=== PATIENT | female | born 1930 | race Caucasian/White ===

== ENCOUNTER → 2017-01-21 | Outpatient (CLI) | payer OTHER ==
[~2017-01-21] MED LIST: ALTACE10 M1 PO; ALTACE5 M1 PO; ALTACE5 MG PO; AMBIEN 10 MG TA10 MG PO; ANTACID650 MG PO; ASPIRIN325 PO; DOXYCYCLINE 10100 MG PO; FERROUS PO; FISH OIL 1,0001 EAC5 PO; FISHOIL; FOSAMAX 70 MG T70 M1 PO; FOSAMAX 70 MG T70 MG PO; HYDROCODONE-AP1 EAC6 PO; IRON325 PO; LEVOTHYROXIN0.025 MG PO; LIDODERM 5%1 PATC1 TRANSDERM; MOBIC15 MG PO; NIACIN500 MG PO; NIASPAN 500 MG500 M1 PO; NORCO 5-325 TA1 EACH PO; PROLIA60 MG/1 ML SQ; PROPRANOLOL 1010 M1 PO; VITAMIN D-32000 UNIT PO; VITAMIN E400 UNIT PO; ZOCOR40 MG PO
== END ==
LOC: MRI 09:28
DX: G31.9 Degenerative disease of nervous system, unspecified (principal); G45.4 Transient global amnesia

== ENCOUNTER 2019-05-01 21:32 | Emergency (ER) | payer OTHER ==
[~2019-05-01] VITALS: Ht 160 cm; Wt 72.6 kg
[2019-05-01 21:34] VITALS: BP 208/70
[2019-05-01] MEDS ORDERED: IBUPROFEN 600600 M1 PO (21:52)
[2019-05-01] MEDS ORDERED: AUGMENTIN 875-1 EACH PO (21:52)
== END 2019-05-01 22:05 | disposition home or self-care (01) ==
LOC: ER 21:32
DX: S81.832A Puncture wound without foreign body, left lower leg, initial encounter (principal); Z88.1 Allergy status to other antibiotic agents; Z79.899 Other long term (current) drug therapy; Z79.82 Long term (current) use of aspirin; Z95.5 Presence of coronary angioplasty implant and graft; Z90.49 Acquired absence of other specified parts of digestive tract; W55.03XA Scratched by cat, initial encounter; Y93.89 Activity, other specified; Y92.89 Other specified places as the place of occurrence of the external cause; Y99.9 Unspecified external cause status

== ENCOUNTER 2019-07-11 18:59 | Emergency (ER) | payer OTHER ==
[~2019-07-11] VITALS: Ht 162.6 cm; Wt 77.1 kg
--- NOTE | ~2019-07-11 | EKG ---
[facility] [place] [address] ELECTROCARDIOGRAM REPORT Name: LINDAGuillermina Room #: [facility]P [facility] [id number] Admission: 07/11/19 Attend Phys: Discharge: 07/11/19 Date of : 34 Report #: [id number] THIS REPORT FOR: cc: Kimani Elizondo MD, Eric K. 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
[~2019-07-11 18:59] MED LIST changes: +AUGMENTIN 875-1 EACH PO; +IBUPROFEN 600600 M1 PO; -LEVOTHYROXIN0.025 MG PO; +SYNTHROID50 MCG PO
[2019-07-11 19:26] LABS: HEMATOCRIT 38.7 % (37.0-47.0); HEMOGLOBIN 12.4 gm/dL (12.0-15.0); MCH 30.4 pg (26.0-34.0); MCHC 32.2 g/dL (28.0-37.0); MCV 94.6 fL (80.0-100.0); PLATELET COUNT 273 thou/uL (150-400); RBC 4.09 mil/uL (4.20-5.00); RDW 14.5 % (10.5-14.5); WBC 7.3 thou/uL (4.0-11.0)
[2019-07-11 19:33] LABS: ANION GAP 12 mmol/L (7-16); BUN 48 mg/dL (7-18); CALCIUM 8.8 mg/dL (8.5-10.1); CHLORIDE 103 mmol/L (98-107); CO2 26 mmol/L (21-32); CREATININE 2.3 mg/dL (0.6-1.0); GLUCOSE 111 mg/dL (74-106); POTASSIUM 4.1 mmol/L (3.5-5.1); SODIUM 141 mmol/L (136-145)
[2019-07-11 19:42] LABS: TROPONIN-I <0.06 ng/mL (<0.06)
[2019-07-11 20:01] LABS: ANISOCYTOSIS 1+
[2019-07-11 23:23] VITALS: BP 176/79
== END 2019-07-11 23:40 | disposition home or self-care (01) ==
LOC: ER 18:59
PROVIDERS: Emergency Medicine
DX: S00.01XA Abrasion of scalp, initial encounter (principal); Z90.49 Acquired absence of other specified parts of digestive tract; Z95.5 Presence of coronary angioplasty implant and graft; Z88.1 Allergy status to other antibiotic agents; W18.39XA Other fall on same level, initial encounter; Y93.89 Activity, other specified; Y92.89 Other specified places as the place of occurrence of the external cause; Y99.8 Other external cause status

== ENCOUNTER 2019-07-13 20:36 | Inpatient (IN) | payer OTHER ==
[~2019-07-13] VITALS: Ht 162.6 cm; Wt 73.9 kg
[2019-07-13 21:16] VITALS: BP 237/90
[2019-07-13 21:47] LABS: ABSOLUTE NEUTROPHILS 7.4 thou/uL (1.4-8.2); BASOPHILS 0.4 % (0.0-2.0); EOSINOPHILS 2.4 % (0.0-3.0); HEMATOCRIT 39.8 % (37.0-47.0); HEMOGLOBIN 12.7 gm/dL (12.0-15.0); LYMPHOCYTES 11.4 % (24.0-44.0); MCH 30.5 pg (26.0-34.0); MCV 95.2 fL (80.0-100.0); PLATELET COUNT 266 thou/uL (150-400); POLYS 76.8 % (36.0-66.0); RBC 4.18 mil/uL (4.20-5.00); RDW 14.6 % (10.5-14.5); WBC 9.7 thou/uL (4.0-11.0)
[2019-07-13 21:56] LABS: CALCIUM 8.9 mg/dL (8.5-10.1); CREATININE 2.5 mg/dL (0.6-1.0); POTASSIUM 4.7 mmol/L (3.5-5.1)
[2019-07-13 22:04] LABS: TROPONIN-I 0.55 ng/mL (<0.06)
[2019-07-14] VITALS (8 sets, daily range): BP systolic 117–212; BP diastolic 48–90
[2019-07-14] MEDS ORDERED: ASPIR 8181 M1 PO (02:53)
[2019-07-14 05:45] LABS: CHOLESTEROL 202 mg/dL (<200); HDL CHOLESTEROL 59 mg/dL (>40); LDL CHOLESTEROL 125 mg/dL (<100); TC:HDL 3.4 Ratio (Not establshd); TRIGLYCERIDE 92 mg/dL (<150); TROPONIN-I 0.43 ng/mL (<0.06); VLDL 18 mg/dL (<40)
[2019-07-14 06:10] LABS: SERUM ASSESSMENT Clear
[2019-07-14 06:12] LABS: FOLIC ACID 5.3 ng/mL (8.6-58.9); TSH 8.806 uIU/mL (0.358-3.740)
--- NOTE | 2019-07-14 06:39 | NUR ---
Arrived from ER around 0210. Very UNALAKLEET , no hearing aids. Denies any chest discomfort. Troponin and BP trending down. IV fluids started. Up with assist to bathroom. Bed alarm on for safety. Urine sample sent to lab per order. Will continue to monitor.
[2019-07-14 07:21] LABS: URINE BILIRUBIN NEGATIVE (Negative); URINE BLOOD TRACE (Negative); URINE CLARITY CLEAR; URINE COLOR YELLOW; URINE GLUCOSE-RANDOM* NEGATIVE (Negative); URINE KETONES NEGATIVE (Negative); URINE LEUKOCYTES-REFLEX NEGATIVE (Negative); URINE NITRITE-REFLEX NEGATIVE (Negative); URINE PROTEIN (DIPSTICK) 1+ (Negative); URINE UROBILINOGEN 0.2 E.U./dl (0.2-1.0)
[2019-07-14 07:33] LABS: CASTS None Seen /LPF (None Seen); SQUAMOUS 4-10 Moderate /LPF (0-3)
[2019-07-14 07:34] LABS: BACTERIA-REFLEX None Seen /HPF (None Seen); CRYSTALS None Seen /LPF (None Seen); URINE RBC 0-2 Rare /HPF (0-2); URINE WBC-REFLEX 0-5 Rare /HPF (0-5)
--- NOTE | 2019-07-14 14:58 | NUR ---
INITIAL ASSESSMENT: SW reviewed chart and spoke with nursing and attending physician. Pt was admitted from home after several falls. SW met with pt at bedside. Introduced role of SW. Pt is alert/orientated x 4. Pt reports she lives at home with her son. Prior to admission, pt was not using any DME. Pt does have a walker. No hx of HH services or post-acute placement. Pt's PCP is Dr. Kimani Elizondo. Pt is agreeable with post-acute placement or HH if recommended. Awaiting therapy evals at this time. SW is following to assist as needed with discharge planning.
--- NOTE | 2019-07-14 16:31 | NUR ---
PATIENT RESTING IN BED AT THIS TIME. SHE AMBULATES WITH SLOW BUT STEADY GAIT. CONTUSSION NOTED TO FOREHEAD. NO INCREASED CONFUSION NOTED. WILL CONT KETTERING HEALTH PLAN OF CARE.
--- NOTE | 2019-07-14 23:40 | NUR ---
PT RESTING IN CHAIR, ALARM INTACT. PT HAS HEART MURMUR. PT VERBALIZED UNDERSTANDING OF NPO P MN FOR AM STRESS TEST. PT CALLS FOR ASSISTANCE WITH AMBULATION, TUOLUMNE. R PUPIL OVAL AND SLUGGISH TO RESPOND. BS HYPOACTIVE. BLE EDEMA +2. FSBS NO COVERAGE NEEDED.
[2019-07-15 04:03] VITALS: BP 128/63
[2019-07-15 06:15] LABS: ABSOLUTE NEUTROPHILS 4.8 thou/uL (1.4-8.2); BASOPHILS 0.5 % (0.0-2.0); EOSINOPHILS 5.9 % (0.0-3.0); HEMATOCRIT 29.9 % (37.0-47.0); LYMPHOCYTES 11.5 % (24.0-44.0); MCH 30.9 pg (26.0-34.0); MCHC 32.5 g/dL (28.0-37.0); MCV 95.1 fL (80.0-100.0); MONOCYTES 11.2 % (1.0-8.0); PLATELET COUNT 197 thou/uL (150-400); POLYS 70.9 % (36.0-66.0); RBC 3.14 mil/uL (4.20-5.00); RDW 14.2 % (10.5-14.5); WBC 6.8 thou/uL (4.0-11.0)
[2019-07-15 06:32] LABS: HEMOGLOBIN 9.7 gm/dL (12.0-15.0)
[2019-07-15 06:40] LABS: CALCIUM 8.6 mg/dL (8.5-10.1); CREATININE 2.4 mg/dL (0.6-1.0); MAGNESIUM 2.1 mg/dL (1.8-2.4); POTASSIUM 4.6 mmol/L (3.5-5.1); TROPONIN-I 0.23 ng/mL (<0.06)
--- NOTE | 2019-07-15 09:29 | 2DMMODE ---
[facility] [place] [address] 2 D/M-MODE ECHOCARDIOGRAM Name: Guillermina MCKEON Room #: 362-P ADM IN M.R.#: [id number] Admission: 07/14/19 Attend Phys: Sushil Ryan MD Discharge: Date of : 32 Report #: [id number] THIS REPORT FOR: cc: Kimani Elizondo MD, Eric K. MD Park, Jin S. MD ~ APPROVED REPORT Study performed: 07/15/2019 08:23:30 EXAM: Comprehensive 2D, Doppler, and color-flow Echocardiogram Patient Location: Echo lab Room #: 362 Status: routine BSA: 1.80 HR: 66 bpm BP: 128/63 mmHg Rhythm: NSR Other Information Study Quality: Adequate Indications Aortic Valve Disease CAD Hypertension/HDD 2D Dimensions RVDd: 31.65 mm IVSd: 14.68 (7-11mm) LVOT Diam: 19.50 (18-24mm) LVDd: 44.90 mm PWd: 15.10 (7-11mm) Ascending Ao: 26.91 (22-36mm) LVDs: 32.74 (25-40mm) Aortic Root: 29.31 mm IVC: 24.00 mm Volumes Left Atrial Volume (Systole) Single Plane 4CH: 72.07 mL Single Plane 2CH: 52.00 mL LA ESV Index: 36.00 mL/m2 Aortic Valve AoV Peak Shabbir.: 3.06 m/s AO Peak Gr.: 37.39 mmHg LVOT Max P.60 mmHg AO Mean Gr.: 22.67 mmHg LVOT Mean P.36 mmHg [facility] [address] [place] [address] 2 D/M-MODE ECHOCARDIOGRAM Name: Guillermina MCKEON Room #: 362-P [facility] IN [facility].#: [id number] Admission: 07/14/19 Attend Phys: Sushil Ryan MD Discharge: Date of : 32 Report #: [id number] AO V2 Mean: 2.19 m/s LVOT Max V: 0.95 m/s AO V2 VTI: 76.92 cm LVOT Mean V: 0.72 m/s MAYRA (VTI): 1.05 cm2 LVOT V1 VTI: 26.95 cm MAYRA Vmax: 0.93 cm2 AI Vmax: 3.59 m/s SV (LVOT): 80.43 mL AI [place]: 1.76 m/s2 AI PHT: 589.51 ms Mitral Valve E/A Ratio: 0.8 MV Decel. Time: 189.43 ms MV E Max Shabbir.: 0.90 m/s MV A Shabbir.: 1.08 m/s MV PHT: 54.93 ms IVRT: 110.73 ms Pulmonary Valve PV Peak Shabbir.: 0.90 m/s PV Peak Gr.: 3.27 mmHg Pulmonary Vein P Vein S: 0.59 m/s P Vein A: 0.27 m/s P Vein D: 0.30 m/s P Vein A Dur.: 92.3 msec P Vein S/D Ratio: 1.97 Tricuspid Valve TR Peak Shabbir.: 2.54 m/s TR Peak Gr.: 25.88 mmHg PA Pressure: 36.00 mmHg Left Ventricle The left ventricle is normal size. There is normal LV segmental wall motion. Mild concentric left ventricular hypertrophy. The left ventricular systolic function is normal. The left ventricular ejection fraction is within the normal range. LVEF is 55-60%. Grade I - abnormal relaxation pattern. Right Ventricle The right ventricle is normal size. The right ventricular systolic function is normal. Atria Left atrium is dilated. Right atrium is at the upper limits of normal. Aortic Valve The aortic valve is normal in structure. [place] [address] 2 D/M-MODE ECHOCARDIOGRAM Name: Guillermina MCKEON Room #: 362-P [facility] IN [facility]#: [id number] Admission: 07/14/19 Attend Phys: Suhsil Ryan MD Discharge: Date of : 32 Report #: [id number] Mild aortic regurgitation. Mild aortic stenosis. Mitral Valve The mitral valve is normal in structure. Mild mitral regurgitation. No evidence of mitral valve stenosis. Tricuspid Valve The tricuspid valve is normal in structure. There is trace tricuspid regurgitation. Estimated PAP 36 mmHg. There is mild pulmonary hypertension. Pulmonic Valve The pulmonary valve is normal in structure. Trace to mild pulmonic regurgitation. Great Vessels The aortic root is normal in size. IVC is dilated and collapses >50% with inspiration. Pericardium There is no pericardial effusion. <Conclusion> The left ventricle is normal size. Mild concentric left ventricular hypertrophy. The left ventricular systolic function is normal. Grade I - abnormal relaxation pattern. The right ventricle is normal size. Left atrium is dilated. Aortic valve is calcified. Mild aortic regurgitation. Mild aortic stenosis. Mild mitral regurgitation. There is trace tricuspid regurgitation. Estimated PAP 36 mmHg. <ELECTRONICALLY SIGNED> By: Jose Luis Vásquez MD 07/15/19927 7 7 Jose Luis Vásquez MD /INF
--- NOTE | 2019-07-15 12:18 | NUR ---
SW reviewed chart and spoke with nursing and attending physician. Pt is currently off the unit having stress test. Pt is progressing towards goals for discharge. SW is following to assist as needed with discharge planning.
--- NOTE | 2019-07-15 12:34 | EKG ---
[facility] [place] [address] ELECTROCARDIOGRAM REPORT Name: Guillermina MCKEON Room #: 362-P ADM IN M.R.#: [id number] Admission: 07/14/19 Attend Phys: Sushil Ryan MD Discharge: Date of : 32 Report #: [id number] THIS REPORT FOR: cc: Kimani Elizondo MD, Eric K. 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1930 Requested By: Negro Madrid Order Number: [id number] MD: Jayy Kinsey Measurements Intervals [place] Rate: 103 P: 70 [place]: 185 QRS: 34 QRSD: 88 T: 0 QT: 324 QTc: 424 Interpretive Statements Sinus tachycardia Multiple ventricular premature complexes Compared to ECG 07/11/2019 19:21:03 Ventricular premature complex(es) now present Electronically Signed On 07-14-2019 9:16:38 CERTIFIED ENDOSCOPY TECHNICIAN by Jayy Kinsey [email or web address] <ELECTRONICALLY SIGNED> By: Jayy Kinsey MD, [facility] 07/14/19 0916 001 001 Jayy Kinsey MD, [facility] /EPI
[2019-07-15 15:13] VITALS: BP 124/47
[2019-07-15 20:24] VITALS: BP 146/60
[2019-07-16 04:00] VITALS: BP 140/57
--- NOTE | 2019-07-16 06:43 | NUR ---
PT UP WITH STANDBY ASSIST TO BATHROOM. PT HAS BEEN NPO SINCE 2400 FOR SCHEDULED CATH TODAY. HOURLY ROUNDING.
[2019-07-16 07:09] LABS: CALCIUM 8.3 mg/dL (8.5-10.1); CREATININE 2.5 mg/dL (0.6-1.0); POTASSIUM 4.2 mmol/L (3.5-5.1)
[2019-07-16 07:48] VITALS: BP 148/53
[2019-07-16 11:12] VITALS: BP 145/62
[2019-07-16 15:42] VITALS: BP 143/60
--- NOTE | 2019-07-16 17:04 | NUR ---
SW reviewed chart and spoke with nursing and attending physician. Pt is progressing towards goals for discharge. SW met with pt at bedside to discuss discharge plan. Pt would prefer to return home with services when medically stable. Cardiology is recommending possible cardiac cath. SW is following to assist as needed with discharge planning.
[2019-07-16 20:04] VITALS: BP 129/40
[2019-07-17] VITALS (7 sets, daily range): BP systolic 120–151; BP diastolic 38–70
--- NOTE | 2019-07-17 07:52 | NUR ---
PATIENT IS PROGRESSING IN HER CARE PLAN. VITAL SIGNS STABLE WITH PATIENT HAVING NO COMPLAINTS OF PAIN OR NAUSEA. PATIENT IS ORIENTED BUT CAN BE FORGETFUL AT TIMES. BREATHING STABLE EVIDENCED BY ASSESSMENT AND SPOT OXYGENATION CHECKS. UP MULTIPLE TIMES TO BATHROOM WITH ASSISTANCE INCIDENT FREE. CONTINUE PLAN OF CARE.
[2019-07-17] MEDS ORDERED: CARVEDILOL12.5 MG PO (08:56)
[2019-07-17] MEDS ORDERED: NORVASC5 MG PO (08:56)
[2019-07-17] MEDS ORDERED: ASPIRIN325 PO (08:56)
[2019-07-17] MEDS ORDERED: LIPITOR40 MG PO (08:56)
--- NOTE | 2019-07-17 16:51 | NUR ---
KALEE reviewed chart and spoke with nursing and attending physician. Pt is progressing towards goals for discharge. Pt may be ready for discharge over the weekend. Recommendation made for pt to have HH services. Pt voice no preference of HH agency. KALEE sent referral to [facility]. SW notified HH liaison of new referral. Contact info for HH placed in pt's discharge summary. Finalized discharge orders/summary will need to be faxed when available. SW is available to assist should needs arise. [facility] --
--- NOTE | 2019-07-18 02:29 | NUR ---
ASSESSMENT: PT REMAIN ALERT AND ORIENT TIMES THREE WHEN FULLY AWAKE JUST A LITTLE FORGETFUL. AFTER WAKING UP PT IS ONLY ALERT TIMES ONE. PT WAKES UP CONFUSED AND THINK THAT SHE IS AT HOME AND THAT HER DAUGHTER IS SLEEPING IN A BED NEXT TO HER. CONTINUALLY TALK ABOUT GETTING UP AND GETTING DRESSED TO COOK BREAKFAST. PT WAS GIVEN A SNACK, ATTEMPTS TO REORIENT TO TIME AND PLACE. SB PER THE MONITOR. VSS, AFEBRILE. SLOW PROGRESS TOWARDS DC GOALS, WILL CONTUNE TO MONITOR.
[2019-07-18 07:04] LABS: ALBUMIN 2.9 g/dL (3.4-5.0); CALCIUM 7.8 mg/dL (8.5-10.1); CREATININE 2.7 mg/dL (0.6-1.0); PHOSPHORUS 3.3 mg/dL (2.5-4.9); POTASSIUM 4.2 mmol/L (3.5-5.1)
[2019-07-18 08:07] VITALS: BP 151/54
[2019-07-18 11:14] VITALS: BP 135/46
[2019-07-18] MEDS ORDERED: FOLIC ACID1 MG PO (13:50)
[2019-07-18] MEDS ORDERED: B-12500 MCG PO (13:50)
[2019-07-18] MEDS ORDERED: SODIUM BICARBO650 M3 PO (13:50)
[2019-07-18] MEDS ORDERED: ACETAMINOPHEN325 M1 PO (13:50)
[2019-07-18 15:47] VITALS: BP 135/58
--- NOTE | 2019-07-18 17:55 | NUR ---
PT is A&OX2 ( person and place), pt's vs are stable, pt denies chest pain , RN received order DC to home with home health, RN has called [facility] and faxed pt's informatiom to , RN has giving DC teaching to pt and pt's daughter, pt's daughter pick up and delivery driver to home about 1630pm.
[2019-07-20 12:15] VITALS: BP 151/50
--- NOTE | 2019-07-20 16:09 | NUR ---
CALL RECEIVED FROM [facility]. MARIKA STATES THEY RECEIVED PATIENT REFERRAL AND DISCHARGE/HOME HEALTH ORDERS. PER ROBBIE [facility] IS UNABLE TO SERVICE PATIENT. [facility] DOES NOT CONTRACT WITH PATIENTS PROVIDER. PATIENT REFERRAL [facility]. CALL RECEIVED FROM [facility]. UNABLE TO SERVICE PATIENT. [facility] DOES NOT CONTRACT WITH PATIENTS PROVIDER. PATIENT REFERRAL FAXED TO [facility]. CALL PLACED TO [facility]. SPOKE WITH PREET VICTORIA. PER JAE VICTORIA DOES NOT CONTRACT WITH PATIENTS PROVIDER. CALL PLACED TO [facility]. SPOKE WITH [facility]. REFERRAL FAXED TO DEE, FOR REVIEW. DEE TO RUN PATIENTS INSURANCE PROVIDER TO SEE IF [facility] CONTRACTS WITH THEM. DEE TO NOTIFY CM. AWAITING RESPONSE.
== END 2019-07-18 17:56 | disposition home health service (06) | DRG 281 ==
LOC: ER 20:36 → EROBS 07-14 00:19 → 3W 07-14 00:19
PROVIDERS: Emergency Medicine; Hospitalist; Nurse Practitioner; ADMIT Internal Medicine
DX: I21.4 Non-ST elevation (NSTEMI) myocardial infarction (principal); N17.9 Acute kidney failure, unspecified; I16.0 Hypertensive urgency; E86.0 Dehydration; E78.5 Hyperlipidemia, unspecified; I73.9 Peripheral vascular disease, unspecified; E03.9 Hypothyroidism, unspecified; I25.10 Atherosclerotic heart disease of native coronary artery without angina pectoris; I12.9 Hypertensive chronic kidney disease with stage 1 through stage 4 chronic kidney disease, or unspecified chronic kidney disease; N18.9 Chronic kidney disease, unspecified; G47.30 Sleep apnea, unspecified; G25.2 Other specified forms of tremor; E53.8 Deficiency of other specified B group vitamins; M81.0 Age-related osteoporosis without current pathological fracture; I67.9 Cerebrovascular disease, unspecified; S00.03XA Contusion of scalp, initial encounter; W10.8XXA Fall (on) (from) other stairs and steps, initial encounter; Y93.01 Activity, walking, marching and hiking; Y92.89 Other specified places as the place of occurrence of the external cause; Y99.8 Other external cause status; Z95.5 Presence of coronary angioplasty implant and graft; Z88.8 Allergy status to other drugs, medicaments and biological substances; Z79.899 Other long term (current) drug therapy; Z79.82 Long term (current) use of aspirin; Z91.81 History of falling; Z90.89 Acquired absence of other organs; Z87.891 Personal history of nicotine dependence
CPT/HCPCS: 10879

== ENCOUNTER → 2019-08-04 | Outpatient (CLI) | payer OTHER ==
[~2019-08-04] MED LIST changes: +ACETAMINOPHEN325 M1 PO; +ASPIR 8181 M1 PO; +B-12500 MCG PO; +CARVEDILOL12.5 MG PO; +FOLIC ACID1 MG PO; +LIPITOR40 MG PO; +NORVASC5 MG PO; +SODIUM BICARBO650 M3 PO
== END ==
LOC: SJCVC 14:18
DX: I25.10 Atherosclerotic heart disease of native coronary artery without angina pectoris (principal); I10 Essential (primary) hypertension; E78.00 Pure hypercholesterolemia, unspecified; R60.9 Edema, unspecified; E78.5 Hyperlipidemia, unspecified; W19.XXXA Unspecified fall, initial encounter; Z79.82 Long term (current) use of aspirin; Z79.899 Other long term (current) drug therapy

== ENCOUNTER 2019-09-10 08:38 | Inpatient (IN) | payer OTHER ==
[~2019-09-10] VITALS: Ht 160 cm; Wt 66.8 kg
[2019-09-10] VITALS (10 sets, daily range): BP systolic 77–194; BP diastolic 43–66
--- NOTE | ~2019-09-10 | HC ---
[facility] [place] [address] CONSULTATION Name: Guillermina MCKEON Room #: 215-P ADM IN M.R.#: [id number] Admission: 09/10/19 Attend Phys: Lenny Hyde MD Discharge: Date of : 32 Report #: [id number] THIS REPORT FOR: cc: Kimani Elizondo MD,Chadd Baldwin MD, MD ~ CC: Kimani Hyde DATE OF SERVICE: 09/14/2019 HISTORY OF PRESENT ILLNESS: The patient is an 89-year-old white female with history of hypertension, hyperlipidemia, peripheral arterial disease, coronary artery disease, status post balloon and stenting, who was admitted with recurrent falls. She was noted to have multifactorial bradycardia, hypertensive urgency and orthostasis. She has been treated for acute on chronic renal insufficiency, possible acute tubular necrosis. She is doing better with fluid hydration. We are seeing her in rehabilitation medicine consultation. PAST MEDICAL HISTORY: Well delineated above. She also has a history of sleep apnea, AL in 1992, osteoporosis, tremors. MEDICATIONS: Please see the full medication listing. ALLERGIES: NEOMYCIN. SOCIAL HISTORY: Lives in a house with her son. She did not utilize gait aids. He was in a prior accident and is apparently disabled and does not work outside the home. He could give her some assistance if need be. REVIEW OF SYSTEMS: She did not offer any complaints of chest pain, shortness of breath or abdominal discomfort. PHYSICAL EXAMINATION: GENERAL: An 89-year-old thin white female in no obvious distress. VITAL SIGNS: Last recorded temperature 97, pulse 57, respirations 18, blood pressure 142/62. The patient is alert. HEENT: Appeared to be benign. NEUROLOGIC: Cranial nerves are grossly intact. Facies are symmetric. EXTREMITIES: Functional range of motion of both upper extremities with strength grade 4-/5. DTRs are trace to 1. Lower extremities functional range of motion with strength grade 4-/5. DTRs are trace to 1. Min assist with sit to stand. She did have a significant orthostatic drop with systolic increasing from 155-115. Lower extremity dressing is mod assist. ASSESSMENT: An 89-year-old white female with the following problem list: [facility] [address] [place] [address] CONSULTATION Name: Guillermina MCKEON Room #: 215-P [facility] IN [facility]#: [id number] Admission: 09/10/19 Attend Phys: Lenny Hyde MD Discharge: Date of : 32 Report #: [id number] 1. Dizziness with recurrent falls. 2. Multifactorial bradycardia. 3. Hypertensive urgency. 4. Acute on chronic renal insufficiency. 5. Orthostatic hypotension. 6. Hypertension. 7. Hyperlipidemia. 8. Premorbid resting tremor. 9. Peripheral arterial disease. 10. Prior history of some memory decrease. PLAN: Insurance will need to be checked regarding rehab therapy issues. We will be glad to follow along with you regarding her rehab therapy needs. By: [id number] [id number] Chadd Holcomb MD /SHIVANI
[2019-09-10 09:07] LABS: HEMATOCRIT 35.4 % (37.0-47.0); HEMOGLOBIN 11.8 gm/dL (12.0-15.0); MCH 30.7 pg (26.0-34.0); MCHC 33.3 g/dL (28.0-37.0); MCV 92.1 fL (80.0-100.0); PLATELET COUNT 234 thou/uL (150-400); RBC 3.84 mil/uL (4.20-5.00); RDW 13.9 % (10.5-14.5); WBC 6.9 thou/uL (4.0-11.0)
[2019-09-10 09:10] LABS: CALCIUM 8.7 mg/dL (8.5-10.1)
[2019-09-10 09:14] LABS: POTASSIUM 4.3 mmol/L (3.5-5.1)
[2019-09-10 09:16] LABS: ALBUMIN 3.4 g/dL (3.4-5.0); TOTAL BILIRUBIN 1.3 mg/dL (<0.1-1.0); TOTAL PROTEIN 7.4 g/dL (6.4-8.2)
[2019-09-10 09:42] LABS: URINE BILIRUBIN NEGATIVE (Negative); URINE BLOOD NEGATIVE (Negative); URINE CLARITY CLEAR; URINE COLOR YELLOW; URINE GLUCOSE-RANDOM* NEGATIVE (Negative); URINE KETONES NEGATIVE (Negative); URINE LEUKOCYTES-REFLEX NEGATIVE (Negative); URINE NITRITE-REFLEX NEGATIVE (Negative); URINE PROTEIN (DIPSTICK) NEGATIVE (Negative); URINE SPECIFIC GRAVITY 1.015 (1.005-1.035); URINE UROBILINOGEN 0.2 E.U./dl (0.2-1.0)
[2019-09-10 09:44] LABS: LIPASE 219 U/L (73-393); TROPONIN-I <0.06 ng/mL (<0.06)
[2019-09-10] MEDS ORDERED: TORSEMIDE10 MG PO (11:38)
--- NOTE | 2019-09-10 13:29 | EKG ---
[facility] [place] [address] ELECTROCARDIOGRAM REPORT Name: Guillermina MCKEON Room #: 215-P ADM IN M.R.#: [id number] Admission: 09/10/19 Attend Phys: Lenny Hyde MD Discharge: Date of : 32 Report #: [id number] THIS REPORT FOR: cc: Kimani Elizondo MD, Eric K. 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1930 Requested By: Negro Madrid Order Number: [id number] MD: Jayy Kinsey Measurements Intervals [place] Rate: 51 P: 70 [place]: 203 QRS: 25 QRSD: 101 T: 16 QT: 471 QTc: 434 Interpretive Statements Sinus rhythm First-degree AV block Compared to ECG 07/14/2019 00:12:28 Sinus tachycardia no longer present Ventricular premature complex(es) no longer present Electronically Signed On 09-10-2019 13:27:40 CDT by Jayy Kinsey [email or web address] <ELECTRONICALLY SIGNED> By: Jayy Kinsey MD, [facility] 09/10/19 1327 [id number] Jayy Kinsey MD, [facility] /EPI
--- NOTE | 2019-09-10 18:25 | NUR ---
PT. ARRIVED AT FLOOR AROUND 1330; AOX4; NO C/O PAIN; ABLE TO TRANSFER FROM [facility] TO BED; PT ST. HAVING A "TEMPERATURE YESTERDAY" BECAUSE SHE FELT SO "HOT & I AM NEVER HOT EVEN IN SUMMER"; GATEMAN & PHYSICIAN NOTIFIED; NO NEW ORDERS; C/O DIZZINESS WHEN SITTIN UP AT THE BED SIDE; MEDICATION STARTED; SBP ABOVE 170; PRN IV MEDICATION GIVEN; PER PHYSICAL THERAPY PT. C/O DIZZINESS; ORTHOSTATIC BP NOTICED; CHECK CHARTING; GATEMAN NOTIFIED; ORDERS ON PLACED; CALLED CONSULT; ABLE TO COMPLETE SOME HOME MEDICATION WITH SON & PT.; NOT SURE ABOUT NEW MEDICATION STARTED PER SON ST.; MONITORING; EDUCATED ABOUT FALL PRECAUTIONS; ST. UNDERSTANDING; ASSESSMENT CHARGED; FOLLOWING POC; WILL PASS ON REPORT;
[2019-09-11] VITALS (7 sets, daily range): BP systolic 97–157; BP diastolic 34–49
--- NOTE | 2019-09-11 00:56 | NUR ---
Pt Alert and oriented x4. PAIMIUT. VSS. Afebrile. HRR. SB on monitor. Lungs dimished at bases. Unlabored on RA. Instructed pt to not get OOB without assistance. Bed down in low locked position. Bed alarm is on. Call light in reach. Pt up to bsc with assistance of 1 person. Voids clear yellow urine. No c/o dizziness so far tonight. No skin breakdown noted. Scds on. Will continue to monitor pt for changes.
--- NOTE | 2019-09-11 07:01 | NUR ---
Pt has had a quiet uneventful night. No c/o dizziness or SOB. Bed down call light in reach. Bed alarm is on. No s/s distress.
[2019-09-11 10:52] LABS: BASOPHILS 0.9 % (0.0-2.0); EOSINOPHILS 2.7 % (0.0-3.0); HEMOGLOBIN 10.2 gm/dL (12.0-15.0); LYMPHOCYTES 14.8 % (24.0-44.0); MCH 30.3 pg (26.0-34.0); MCV 92.1 fL (80.0-100.0); MONOCYTES 10.7 % (1.0-8.0); PLATELET COUNT 199 thou/uL (150-400); POLYS 70.9 % (36.0-66.0); RBC 3.37 mil/uL (4.20-5.00); RDW 14.2 % (10.5-14.5); WBC 5.7 thou/uL (4.0-11.0)
[2019-09-11 10:58] LABS: CREATININE 2.6 mg/dL (0.6-1.0); POTASSIUM 3.7 mmol/L (3.5-5.1)
--- NOTE | 2019-09-11 16:14 | NUR ---
Case opened to follow for dc planning. Pt gave permission to speak with her son regarding dc planning needs as they live together. Her dtr Saira is her dpoa but lives in [place]. Chain Person spoke with both son Kade and at his request dtr Saira. They report that the pt has been more sedentary and forgetful in recent months. She has not been eating and drinking well at home and her son helps manage her medications. They are open to HH and did not get any arranged when she went home in July. They are agreeable to using [facility] if they can accept. The pt has a walker at home and normally goes out to the store with her son. She is confined to her home otherwise. She is indep with most adl's with some setup. Son does the iadl's. They are concerned about her medication mgnt and weakness. Pt being hydrated and montiored for orthostatic bps. Therapy evals in progress. [facility] notified of referral [phone]. They would need to be contacted at [place] and orders faxed to [phone].
--- NOTE | 2019-09-11 17:08 | NUR ---
FAXED REFERRAL TO [facility] SPOKE WITH [facility] IN INTAKE THEY RECEIVED REFERRAL AND CAN ACCEPT AT DC. IF PT DISCHARGES OVER WEEKEND PLEASE FAX ORDERS TO [phone] AND CALL [phone] TO NOTIFY OF DC.
--- NOTE | 2019-09-11 18:17 | NUR ---
Received awake on bed. Due medications given as prescribed, able to swallow meds w/o difficulty. On room air. Vital signs stable, orthostatic BP monitoring done, with slight decline noted- Cardio TIMBER SUPERVISOR aware; Pt seen by Dr Vásquez- medications modified. A+Ox4, [place]. On heart monitoring, no complaints of chest pain, crushing sensation and heaviness. On heart healthy diet- encouraged to eat and drink; no nausea, no vomiting and no abdominal pain noted. Continent of B/B; able to walk to the toilet with gait belt and standby assist; output measured and recorded. With NS at 100cc/hr, infusing well at L FA. Ongoing PT/OT. With Knee high RYLAN hose in place. Pt's daughter Alejandra called- update given. To continue monitoring patient.
[2019-09-12] VITALS (7 sets, daily range): BP systolic 110–176; BP diastolic 48–73
--- NOTE | 2019-09-12 00:07 | NUR ---
PT DENIED PAIN/N/V SO FAR.PT UP WITH SBA/WALKER TO BR,PT FELT DIZZY WHEN SHE GOT UP BT RECOVERED IMMEDIATELY.PT CONT ON IVF ORDERED.PT ABLE TO MAKE HER NEEDS KNOWN.FALL PRECAUTIONS IN PLACE,CALL LIGHT WITHIN REACH.
[2019-09-12 04:38] LABS: CALCIUM 7.8 mg/dL (8.5-10.1); CREATININE 2.4 mg/dL (0.6-1.0); POTASSIUM 3.7 mmol/L (3.5-5.1)
--- NOTE | 2019-09-12 15:58 | NUR ---
ASSUMED CARE PT SHIFT CHANGE. ASSESSMENT CHARTED. MEDS GIVEN PER AUG. PT ALERT AND ORIENTED. VSS. DENIES PAIN. 02 SATS WNL ON RA. DENIES SOB. UP SBA TOLERATING WELL. PT WORKED WITH PHYS THERAPY THIS SHIFT TOLERATING WELL. DC ORTHOSTATIC BP PER PHYSICIAN ORDER. BP REMAINS WNL. DENIES DIZZINESS. APPETITE ADEQUATE. PT CURRENTLY RESTING UP IN CHAIR, DENYING OF NEEDS. WILL CONTINUE TO MONITOR AND FOLLOW POC.
[2019-09-13] VITALS (7 sets, daily range): BP systolic 104–151; BP diastolic 38–86
[2019-09-13 05:27] LABS: HEMATOCRIT 30.8 % (37.0-47.0); HEMOGLOBIN 10.4 gm/dL (12.0-15.0); MCHC 33.7 g/dL (28.0-37.0); MCV 91.9 fL (80.0-100.0); RBC 3.35 mil/uL (4.20-5.00); RDW 14.2 % (10.5-14.5); WBC 6.8 thou/uL (4.0-11.0)
[2019-09-13 05:28] LABS: CALCIUM 8.9 mg/dL (8.5-10.1); CREATININE 2.2 mg/dL (0.6-1.0); POTASSIUM 4.1 mmol/L (3.5-5.1)
--- NOTE | 2019-09-13 06:32 | NUR ---
ASSESSMENT DOCUMENTED.PT BEEN RESTING IN NO ACUTE DISTRESS.A/OX4.VSS.DENIES ANY EPISODES OF DIZZINESS.UP WITH ASSIT TO BR.RA W/O RESP DISTRESS.POC IS TO CONT TO MONITOR ADN DISCHARGE TO SNF WHEN STABLE.PT DENIES ANY NEEDS AT THIS TIME.
--- NOTE | 2019-09-13 17:15 | NUR ---
PT CARE ASSUMED APPROX 0700. ASSESSMENT CHARTED. DENIES PAIN AND SOA. VSS. UP WITH MIN 1 PERSON ASSIST. TOLERATING POC. DENIES QUESTIONS OR CONCERNS REGARDING POC. NO DISTRESS NOTED.
--- NOTE | 2019-09-14 01:39 | NUR ---
UP WITH ASSIST TO THE BATHROOM.VOIDED.ALERT AND ORIENTED.DENIES PAIN AND SOB.ROOM AIR.MONITOR SHOWS SR.POC CONTINUED.
[2019-09-14 04:14] VITALS: BP 161/64
[2019-09-14 08:00] VITALS: BP 116/54; BP 179/69; BP 179/76
[2019-09-14 11:04] LABS: CALCIUM 9.3 mg/dL (8.5-10.1); CREATININE 2.2 mg/dL (0.6-1.0); POTASSIUM 3.9 mmol/L (3.5-5.1)
[2019-09-14 12:00] VITALS: BP 142/62
--- NOTE | 2019-09-14 13:57 | NUR ---
Assumed pt care at 7am.Pt in bed resting without c/o.Assessment completed.vss. Pt up in chair for all meals.Good appetite.Dr Hyde here,wanted rehab evaluate pt.Received call from pt dtr.Updates given.Fall bundle in place for pt safety. Will continue to monitor.
--- NOTE | 2019-09-14 15:29 | NUR ---
called patient in room. patient evaled by [facility] and candidate for acute rehab. patient agreeable to plan. Attempted to call dtr but no answer. Patient reports she will update her.
--- NOTE | 2019-09-14 15:40 | NUR ---
PATIENT HAS BEEN ASSESSED PER DR. BARKLEY REGARDING APPROPRIATENESS FOR ACUTE INPATIENT REHAB ADMISSION. PT HAS FUNCTIONAL AND MEDICAL NEEDS THAT WOULD REQUIRE MORE THAN ONE THERAPY DISCIPLINE AT LEAST 3 HOURS PER DAY, AND DUE TO ACUTE MEDICAL PROBLEMS, SHE ALSO REQUIRES THE CLOSE MANAGEMENT OF MEDICAL NEEDS REQUIRING A REHAB MD TO SEE HER AT LEAST 3 TIMES PER WEEK. PT HAS BEEN ACCEPTED TO ACUTE REHAB PENDING MEDICAL CLEARANCE AND APPROVAL PER FAMILY AND PATIENT. THANK YOU FOR THIS REFERRAL. WILL REACH OUT TO [employer] REGARDING AUTHORIZATION REQUIREMENTS.
[2019-09-14 16:00] VITALS: BP 151/65
[2019-09-15 00:30] VITALS: BP 142/53
[2019-09-15 04:11] VITALS: BP 137/48
--- NOTE | 2019-09-15 05:18 | NUR ---
Assumed pt care at 2300. Pt is A/OX4 with forgetfulness, hard of hearing and doesn't wear hearing aids. VSS. Up with assist of 1, RW/GB. Denies pain on assessment. Continent of B&B. Denies dizziness this shift. Fall precautions in place, reminded to call for help. Call light/personal items within reach. Resting w/o distress noted, will continue to monitor pt.
[2019-09-15 06:10] LABS: CALCIUM 8.8 mg/dL (8.5-10.1); CREATININE 2.2 mg/dL (0.6-1.0); POTASSIUM 4.1 mmol/L (3.5-5.1)
[2019-09-15 07:42] VITALS: BP 172/62
[2019-09-15] MEDS ORDERED: NORVASC10 MG PO (13:21)
--- NOTE | 2019-09-15 15:46 | NUR ---
CM NOTIFIED THAT PT HAD BEEN ACCEPT MEDICALLY TO [facility] AND THAT THEY COULD ACCEPT PT TODAY. CM SPOKE WITH PT AND WITH PT'S DTR THEY WERE AGREEABLE. [facility] CONTACTED INSURANCE FOR AUTH AND IT WAS DETERMINED THAT [facility] IS OUT OF NETWORK WITH HER P[ARTICULAR PLAN. [facility] IS IN NETWORK. CM NOTIFIED PT AND DTR AND THEY ASKED THAT REFERRAL BE SENT TO THEM FOR REVIEW. REFERRAL SENT. CM NOTIFIED PHYSICAIN. CM TO FOLLOW INDICATED WITH DC PLANNING.
--- NOTE | 2019-09-15 16:15 | NUR ---
FAXED REFERRAL TO [facility]. SPOKE WITH KIERAN IN ADM RECEIVED CONFIRMATION AND SPOKE WITH KIERAN IN ADM SHE WILL REVIEW. DP TO FOLLOW
[2019-09-15 16:19] VITALS: BP 145/61
--- NOTE | 2019-09-15 16:36 | NUR ---
PATIENT ACCEPTED TO ACUTE REHAB ON 09/14/19 WITH POSSIBLE ADMISSION THIS DATE TO . INSURANCE CALLED FOR AUTHORIZATION AND [employer]ORTER [employer]UN[employer] ARTICLES FOUND THAT IS NOT IN NETWORK FOR PATIENT'S [facility] PLAN. PATIENT HAS VERY LIMIT PLAN WITH ONE OPTION FOR REHAB AND THAT IS [facility]. IF [facility] WILL NOT ACCEPT THE PATIENT, CAN REQUEST SPECIAL EXCEPTION FOR ADMISSION. CURTAIN MENDER INFORMED. CONTACT AT [facility] IS DIRK AND CONTACT NUMBER IS [id number]
--- NOTE | 2019-09-15 18:52 | NUR ---
PT IS AOX3, LAC VIEUX, VSS, NO C/O PAIN AT THIS TIME. PT IS UP TO RECLINER WITH GAIT BELT AND WALKER. IV IS SL IN LEFT FA. PT TOLERATING DIET WELL. FALL PRECAUTIONS IN REACH. WILL CONTINUE TO MONITOR.
[2019-09-15 19:06] VITALS: BP 160/54
[2019-09-16] VITALS (10 sets, daily range): BP systolic 125–188; BP diastolic 34–60
--- NOTE | 2019-09-16 04:23 | NUR ---
Assumed pt care at 1900. A/OX4, with forgetfulness but able to make needs known. Denies pain on assessment. VSS. Up with AX1, RW/GB. Continent of B&B. Fall precautions in place and pt reminded to call for help as needed. Call light/personal items within reach, resting quietly w/o distress noted. Will continue to monitor pt.
[2019-09-16 04:39] LABS: CALCIUM 8.6 mg/dL (8.5-10.1); CREATININE 2.4 mg/dL (0.6-1.0); POTASSIUM 4.2 mmol/L (3.5-5.1)
--- NOTE | 2019-09-16 16:26 | NUR ---
[facility] INDICATED THAT PT IS TOO HIGH LEVEL AND THEY WON'T ACCEPT. CM ATTEMPTED NUMEROUS PC TO HER FTR/DPOA IN [place] BUT SHE LEFT HER PHONE AT HOME CM SPOKE WITH HER SPOUSE. CM TRIED PT'S SON WHO LIVES WITH HER PRESTON ON HIS CELL AND AT THE HOME ADDRESS WITH NO ANSWER. CM CALLED AND SPOKE WITH PT AND SHE INDICATRED SHE FEELS SAFE TO RETURN HOME WITH HOME HEALTH SERVICES THIS DAY. JEISON SENT CLINICAL UPDATED TO [facility] REFERRAL HAD BEEN SENT THERE PREOVIOUSLY. SHOULD STAFF BE ABLE TO REACH FAMILY AND CONFIRM [place]ENET OF DC HOME TODAY FAX HOME HEALTH ORDERS TO .
--- NOTE | 2019-09-16 18:45 | NUR ---
ASSUMED CARE OF PATIENT AT 0715, PATIENT ALERT AND ORIENTED X 4, FORGETFUL. PATIENT ABDELRAHMAN PAIN THIS SHIFT. PATIENT HAS LEFT FOREARM IV IN PLACE, REMAINS PATENT. RECEIVED CALL FROM JEISON/JOCELYNN, PATIENT DECLINE TO GO TO [facility], POSSIBLE DISCHARGE TO HOME WITH HOMEHEALTH. THIS RN NOTIFIED THE DAUGHTER/DAYDAY CASTILLO OF PLANS TO DISCHARGE TO HOME WITH HOMEHEALTH, DAUGHTER NOT OK WITH DISCHARGE TO HOME, THIS RN NOTIFIED JOCELYNN/JEISON, SHE WILL NOTIFY DR LOVETT, AND F/U IN AM FOR SKILLED FACILITY OPTIONS. UP WITH ASSIST X 1 TO BATHROOM. PHYSICAL THERAPY AMBULATED THE PATIENT TODAY. PATIENT UP IN CHAIR MOST OF THE SHIFT. WILL CONTINUE TO MONITOR.
--- NOTE | 2019-09-16 23:36 | NUR ---
Assumed pt care at 1900. Pt's A/OX4, with forgetfulness noted and needs reminders to call for help before getting up. Orthostatic blood pressures done and charted noted to be on the higher side, was going to administer Hydralazine PRN but IV wasn't patent. Attempted to reinsert IV X1 w/o success, pt requested not to be stuck again since she's not getting anything else. Informed her of the policy and pt verbalizes understanding;rechecked Blood pressure and it's 149/54.Aby ASSISTANT EDITOR notified of pt's requests and okay to leave IV out and follow up in the morning as needed. Pt updated and appreciated cares. Fall precautions in place,call light/personal items placed within reach. Pt resting quietly at this time will continue to monitor pt.
[2019-09-17] VITALS (7 sets, daily range): BP systolic 124–177; BP diastolic 44–514
[2019-09-17 06:05] LABS: CALCIUM 8.9 mg/dL (8.5-10.1); CREATININE 2.4 mg/dL (0.6-1.0); POTASSIUM 4.4 mmol/L (3.5-5.1)
--- NOTE | 2019-09-17 12:14 | NUR ---
PT'S DTR HAD CALLED AND SPOKEN WITH PT'S NURSE YESTERDAY EVENING AND INDICATED THAT SHE DIDN'T FEEL CONFORTABLE WITH PT GOING HOME WITH HH SERVICES. CM HAS SENT A REFERRAL TO [facility] HAD PT DISCHARGED HOME. THEY CALLED THIS AM AND INDICATED THAT THEY AREN'T IN NETWORK WITH INSURANCE. CM CALLED AND SPOKE WITH DTR SHE INDICATED THAT PT HAS TO BE ABLE TO NAVIGATE STEPS TO BEDROOM AND PT HADN'T DONE STEPS YET. JEISON HAD CONTACTED PT INSURANCE AND GOTTEN LIST OF IN NETWORK SNF. CM SENT LIST TO DTR. SHE REVIEWED AND ASKED THAT REFERRALS BE SENT TO [facility], [facility], AND [facility]. REFERRALS SENT. CM INIDCATED TPT IS MEDICALLY STABLE TO DC ONCE WE HAVE AN AN ACCEPTING FACILITY AND INSURANCE AUTH. CM TO FOLLOW INDICATED WITH DC PLANNING.
--- NOTE | 2019-09-17 16:25 | NUR ---
[facility] BACK [facility] FACILITY GOT AUTH AND CM HAD CALLED TO REQUEST THAT THEY RECIND IT. CM HAD FAXED ORDERS TO [facility] THEY RECIEVED THEM BUT HADN'T YET GOTTEN THE AUTH. CM CALLED AND TRIED TO SPEAK WITH [facility] IN ADMISSION BUT SHE HAD LEFT FOR THE DAY. CM NOTIFIED PHYSICAIN. SHOULD THEY BE ABLE TO ACCEPT PT THIS EVENING PLEASE CALL [facility] AT . CALL [phone] WITH REPORT.
--- NOTE | 2019-09-17 18:20 | NUR ---
ASSUMED CARE OF PATIENT AT 0715, PATIENT ALERT AND ORIENTED X 4, FORGETFUL. PATIENT DENIES PAIN THIS SHIFT. PATIENT UP WITH ASSIST X 1 WITH GB AND WALKER. PATIENT STILL WAITING ON PLACEMENT, WILL BE GOING TO SKILLED FACILITY ONCE INS. AUTH. RECEIVED. PATIENT HAS NO IV IN PLACE AT THIS TIME, OK'D BY VOCATIONAL EXAMINER ON NIGHTSHIFT TO LEAVE OUT. UPDATE GIVEN TO DAYDAY/DAUGHTER. WILL CONTINUE TO MONITOR.
--- NOTE | 2019-09-18 03:35 | NUR ---
PT CARE ASSUMED AT 1915 WITH PT IN CHAIR WATCHING TV.PT IS A/O X4 (FORGETFUL).PT IS UP WITH SBA X1.PT DENIED DIZZINESSS AND PAIN.PT HAS NO IV ACCESS.PT IS TO HAVE ORTHOSTSTIC BP TAKEN QS.PT IS TO GO TO SNF TODAY IF OK.WILL CONTINUE TO MONITOR PER POC
[2019-09-18 03:48] VITALS: BP 137/55
[2019-09-18 05:03] LABS: CALCIUM 8.8 mg/dL (8.5-10.1); CREATININE 2.5 mg/dL (0.6-1.0); POTASSIUM 4.3 mmol/L (3.5-5.1)
[2019-09-18 08:39] VITALS: BP 150/70
[2019-09-18 08:45] VITALS: BP 152/58
[2019-09-18 08:46] VITALS: BP 111/44
--- NOTE | 2019-09-18 10:54 | NUR ---
ASSUMED CARE AT 0700. PT ALERT AND ORIENTED. LAYING IN BED. NO COMPLAINTS AT THIS TIME. NO PIV IN PLACE. PT DISCHARGE TO FACILITY TODAY. REPORT GIVEN TO FACILITY AT 1045.
== END 2019-09-18 11:15 | disposition home health service (06) | DRG 304 ==
LOC: ER 08:38 → EROBS 11:07 → 2N 11:07 → 4S 09-14 20:27
PROVIDERS: Emergency Medicine; Nurse Practitioner; ADMIT Hospitalist
DX: I16.0 Hypertensive urgency (principal); N17.0 Acute kidney failure with tubular necrosis; I13.10 Hypertensive heart and chronic kidney disease without heart failure, with stage 1 through stage 4 chronic kidney disease, or unspecified chronic kidney disease; E78.5 Hyperlipidemia, unspecified; I73.9 Peripheral vascular disease, unspecified; N18.3 Chronic kidney disease, stage 3 (moderate); I25.10 Atherosclerotic heart disease of native coronary artery without angina pectoris; M81.0 Age-related osteoporosis without current pathological fracture; I95.1 Orthostatic hypotension; R29.6 Repeated falls; R00.1 Bradycardia, unspecified; E86.0 Dehydration; R41.3 Other amnesia; Z79.82 Long term (current) use of aspirin; I25.2 Old myocardial infarction; Z95.5 Presence of coronary angioplasty implant and graft; Z90.710 Acquired absence of both cervix and uterus; Z79.899 Other long term (current) drug therapy; Z88.8 Allergy status to other drugs, medicaments and biological substances; Z90.89 Acquired absence of other organs
CPT/HCPCS: 10081; 10102

== ENCOUNTER → 2019-10-09 | Outpatient (CLI) | payer OTHER ==
[~2019-10-09] MED LIST changes: +NORVASC10 MG PO; +TORSEMIDE10 MG PO
== END ==
LOC: SJCVC 13:18
DX: I25.10 Atherosclerotic heart disease of native coronary artery without angina pectoris (principal); I12.9 Hypertensive chronic kidney disease with stage 1 through stage 4 chronic kidney disease, or unspecified chronic kidney disease; N18.9 Chronic kidney disease, unspecified; I95.1 Orthostatic hypotension; E78.5 Hyperlipidemia, unspecified; R29.6 Repeated falls; R60.9 Edema, unspecified

== ENCOUNTER 2019-11-12 12:19 | Inpatient (IN) | payer OTHER ==
[~2019-11-12] VITALS: Ht 165.1 cm; Wt 67.6 kg
[2019-11-12 13:08] LABS: HEMOGLOBIN 12.1 gm/dL (12.0-15.0); MCH 30.5 pg (26.0-34.0); MCHC 32.7 g/dL (28.0-37.0); MCV 93.2 fL (80.0-100.0); PLATELET COUNT 246 thou/uL (150-400); RBC 3.97 mil/uL (4.20-5.00); RDW 15.9 % (10.5-14.5)
[2019-11-12 13:19] LABS: ANION GAP 6 mmol/L (7-16); BUN 48 mg/dL (7-18); CALCIUM 9.3 mg/dL (8.5-10.1); CHLORIDE 104 mmol/L (98-107); CO2 28 mmol/L (21-32); CREATININE 2.7 mg/dL (0.6-1.0); GLUCOSE 119 mg/dL (74-106); POTASSIUM 4.1 mmol/L (3.5-5.1); SODIUM 138 mmol/L (136-145)
[2019-11-12 13:29] LABS: ALBUMIN 3.5 g/dL (3.4-5.0); SGOT 21 U/L (15-37); SGPT 18 U/L (30-65); TOTAL PROTEIN 7.3 g/dL (6.4-8.2); TROPONIN-I <0.06 ng/mL (<0.06)
[2019-11-12 13:33] LABS: ABSOLUTE NEUTROPHILS 4.8 thou/uL (1.4-8.2); ANISOCYTOSIS SLIGHT; PLATELET ESTIMATE NORMAL
[2019-11-12 14:44] LABS: APTT 22.6 Seconds (24.5-32.8); INR 1.1; PROTIME 10.9 Seconds (9.3-11.4)
[2019-11-12] MEDS ORDERED: DONEPEZIL HCL 55 M1 PO (14:57)
[2019-11-12] MEDS ORDERED: CARVEDILOL12.5 MG PO (14:57)
[2019-11-12] MEDS ORDERED: RAMIPRIL5 MG PO (14:58)
[2019-11-12] MEDS ORDERED: INDERAL 20 MG T20 M1 PO (14:58)
[2019-11-12] MEDS ORDERED: LIPITOR 40 MG T40 M1 PO (14:58)
[2019-11-12] MEDS ORDERED: TORSEMIDE10 MG PO (14:59)
[2019-11-12 15:06] LABS: URINE BILIRUBIN NEGATIVE (Negative); URINE BLOOD 1+ (Negative); URINE CLARITY SL CLOUDY; URINE COLOR YELLOW; URINE GLUCOSE-RANDOM* NEGATIVE (Negative); URINE KETONES NEGATIVE (Negative); URINE LEUKOCYTES-REFLEX NEGATIVE (Negative); URINE NITRITE-REFLEX NEGATIVE (Negative); URINE PROTEIN (DIPSTICK) NEGATIVE (Negative); URINE UROBILINOGEN 0.2 E.U./dl (0.2-1.0)
[2019-11-12 15:17] LABS: CASTS None Seen /LPF (None Seen); SQUAMOUS 4-10 Moderate /LPF (0-3)
[2019-11-12 15:18] LABS: AMORPHOUS URATES Few /LPF (None Seen); URINE RBC 3-10 Few /HPF (0-2); URINE WBC-REFLEX 0-5 Rare /HPF (0-5)
[2019-11-12 15:26] LABS: AMP/METHAMP Negative (Negative); BARBITURATES Negative (Negative); BENZODIAZEPINES Negative (Negative); COCAINE Negative (Negative); METHADONE Negative (Negative); OPIATES Negative (Negative); PCP Negative (Negative)
[2019-11-12 17:40] VITALS: BP 168/53
--- NOTE | 2019-11-12 17:51 | NUR ---
ATTEMPTED TO CALL REPORT, WAS TOLD RN IS IN THE MIDDLE OF A PROCEDURE AND WOULD CALL BACK SOON
[2019-11-12 18:08] VITALS: BP 173/65
[2019-11-12 20:33] VITALS: BP 131/55
[2019-11-13 05:02] VITALS: BP 151/59
--- NOTE | 2019-11-13 07:58 | EKG ---
[facility] [place] [address] ELECTROCARDIOGRAM REPORT Name: Guillermina MCKEON Room #: 460-P ADM IN M.R.#: [id number] Admission: 11/12/19 Attend Phys: Stalin Burton MD Discharge: Date of : 34 Report #: [id number] THIS REPORT FOR: cc: Kimani Elizondo MD, Eric K. MD Couchonnal, Luis F. MD ~ THIS REPORT FOR: //name// [facility] ED Test Date: 2019-11-12 Test Time: 12:49:59 Pat Name: Guillermina MCKEON Department: Room: [facility] Gender: F Watch Crystal Cutter: [facility] : 1930 Requested By: Cristina Davey Order Number: [id number] MD: Josh Brower Measurements Intervals [place] Rate: 54 P: 81 KS: 212 QRS: 67 QRSD: 95 T: 23 QT: 435 QTc: 413 Interpretive Statements Sinus rhythm Borderline prolonged KS interval Compared to ECG 09/10/2019 08:42:54 No significant changes Electronically Signed On 11-13-2019 7:57:49 CDT by Josh Brower [email or web address] <ELECTRONICALLY SIGNED> By: Josh Brower MD 11/13/19 0757 1249 1249 Josh Brower MD /EPI
[2019-11-13 08:30] VITALS: BP 109/36; BP 124/60; BP 177/52
--- NOTE | 2019-11-13 08:33 | NUR ---
ADMIT PT ADMITTED S/P FALL TO ROOM 460 FROM ED. PT ORIENTED TO ROOM CALL LIGHT AND PLAN OF CARE. VSS, USING CALL LIGHT APPROPRIATELY PT IS A FALL RISK AND FALL PRECAUTIONS IN PLACE.
--- NOTE | 2019-11-13 15:41 | NUR ---
PT ADMITTED RELATED TO FALL, WEAKNESS. CM REVIEWED CHART AND SPOKE WITH CARE TEAM. PT FAMILIAR TO CM FROM PREVIOUS ADMISSION. CM CALLED AND SPOKE WITH PT AT BEDSIDE THIS DAY. PT APPEARED TO BE A&O X4. CM ROLE INTRODUCED. PT INDICATED SHE LIVES IN A HOUSE AND THAT HE SON PRESTON LIVES WITH HER. THERE ARE 7 STEPS TO ENTER 6 TO BEDROOM, AND 7 TO BASEMENT. 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 PT INDICTAED SHE HAD BEEN ON SERVICE WITH A HH PROVIDER AFTER SHE LEFT [facility] IN SEPTEMBER BUT COULDN'T RECALL COMPANY NAME. PT INDICATED SHE HOPED TO RETURN HOME ONCE MEDICALLY STABLE. CM CALLED AND SPOKE WITH PT'S DTR MICHELLE WHO LIVES IN [place]. SHE INDICATED PT WOULD BENEFIT FROM POST ACUTE CARE STAY AGAIN. ASKED THAT REFERRAL BE SENT TO [facility] FOR REVIEW. WE WOULD NEED AUTH SO LIKELY WON'T GET IT OVER THE WEEKEND. CM TO FOLLOW INDICATED WITH DC PLANNING.
--- NOTE | 2019-11-13 16:12 | NUR ---
FAXED REFERRAL TO [facility] RECEIVED CONFIRMATION AND LEFT MSG WITH NILESH IN ADM. DP TO FOLLOW.
--- NOTE | 2019-11-13 16:20 | NUR ---
FAXED REFERRAL TO [facility] SPOKE WITH NILESH IN ADM THEY DO NOT HAVE A BED AVAILABLE TIL MIDDLE OF THE WEEK PT TO DC PRIOR TO THAT. DP TO FOLLOW.
--- NOTE | 2019-11-13 19:58 | NUR ---
Assessment completed.vss.Pt in and out of bed with assist.Patricia Burton and Thalia here order noted.Assisted pt with tray setup.Good appetite noted.Pt ambulated in hallways x2 this shift with thjerapist.Good endurance noted.No verbal c/o and dizziness noted.Will continue to monitor.
[2019-11-13 20:32] VITALS: BP 139/58
[2019-11-14 03:53] VITALS: BP 173/71
--- NOTE | 2019-11-14 04:14 | NUR ---
PATIENT CALM AND COOPERATIVE THIS SHIFT. PATIENT INCONTINENT THIS SHIFT PERICARE AND BARRIER CREAM APPLIED NEEDED. PATIENT IN BED ASLEEP AT THIS TIME BREATHING REGULAR AND UNLABOURED.
[2019-11-14 07:21] VITALS: BP 154/69
[2019-11-14 15:08] VITALS: BP 157/69
--- NOTE | 2019-11-14 15:46 | NUR ---
ASSUMED CARE OF PT AT 1500, REVIEWED POC WITH PT, SHE IS PLEASANTLY CONFUSED, SITTING IN CHAIR, ALARM ON, ORIENTED TO PERSON, PLACE, AND TIME. CALL LIGHT IN LAP, WILL MONITOR
--- NOTE | 2019-11-14 15:51 | NUR ---
Assumed pt care at 7am.Pt in and out of bed to br with sba.Assessment completed.vss.Assisted pt with tray setup.Fair appetite.Dr Vásquez and Micheal here.Dc on hold till saturday.Pt will be dc to rehab prior to finally dc home. No dizziness noted this shift.Encouraged pt to call before out of bed to prevent fall.Fall bundle in place.Will continue to monitor.
[2019-11-14 20:13] VITALS: BP 170/55
--- NOTE | 2019-11-15 08:07 | NUR ---
RECIEVED CARE OF THIS PATIENT AT 1900. PATIENT ALERT AND ORIENTED X4. UP TO BATHROOM WITH SBA. DENIES PAIN. SLEPT OFF AND ON DURING NIGHT.
[2019-11-15 08:45] VITALS: BP 172/68
[2019-11-15 09:30] LABS: CALCIUM 7.9 mg/dL (8.5-10.1); CREATININE 2.1 mg/dL (0.6-1.0); POTASSIUM 3.7 mmol/L (3.5-5.1)
--- NOTE | 2019-11-15 11:27 | NUR ---
DR NAYLOR HERE TO SEE PATIENT ORDER TO DC FLUIDS PT IS DRINKING ADEQUATELY.
[2019-11-15 16:40] VITALS: BP 151/54
[2019-11-15 19:33] VITALS: BP 152/67
--- NOTE | 2019-11-16 04:11 | NUR ---
PATIENT AOX2 CONFUSED AND FORGETFUL.PATIENT SAYS SHE GETS DIZZY WHEN SHE STANDS UP FOR A LONG TIME.FALL PRECAUTION IN PLACE. PATIENT IN BED ASLEEP AT THIS TIME BREATHING REGULAR AND UNLABOURED.
[2019-11-16 08:50] VITALS: BP 133/62
--- NOTE | 2019-11-16 15:47 | NUR ---
[facility] WON'T HAVE BEDS OPEN UNTIL LATER THIS WEEK. REFERRALS SENT TO [facility] FOR REVIEW FOR POSSIBLE ADMISSION. CM TO FOLLOW INDICATED WITH DC PLANNING.
[2019-11-16 16:22] VITALS: BP 136/62
--- NOTE | 2019-11-16 16:45 | NUR ---
FAXED REFERRAL TO [facility] RECEIVED CONFIRMATION AND LEFT MSG WITH [facility] IN ADM. FAXED REFERRAL TO [facility] SPOKE WITH KEON IN ADM THEY ARE NOT ACCEPTING ANY NEW PT'S DUE TO COVID AT FACILITY. DP TO FOLLOW.
--- NOTE | 2019-11-16 18:41 | NUR ---
Assessment completed.vss.Pt up to br with assist.Assisted pt with tray setup. Fair appetite noted.Meds given as ordered and well tolerated.Dr Burton here, she said pt will be dc to rehab whenever bed available.Updates given to cm. No dizziness or verbal c/o noted.Fall bundle in place.Will continue to monitor.
[2019-11-16 19:38] VITALS: BP 152/69
--- NOTE | 2019-11-17 04:55 | NUR ---
PATIENT AOX2 CONFUSED AND FORGETFUL. PATIENT ENCOURAGED FLUIDS. PATIENT AMBULATES TO THE BATHROOM WITH STEADY GAITS. PATIENT SEEMS TO BE TALKING TO UNSEEN OTHER. CALL LIGHT AND PERSONAL ITEM WITHIN REACH. PATIENT IN BED ASLEEP AT THIS TIME BREATHING REGULAR AND UNLABOURED.
[2019-11-17 08:02] VITALS: BP 151/63
--- NOTE | 2019-11-17 14:28 | NUR ---
REFERRALS HAD BEEN SENT TO [facility] BOTH INDICATED THAT THEY WOULDN'T SUBMIT FOR AUTH [employer] WOULDN'T AUTHORIZE PT IS DOING VERY WELL. OT DC'D PT TODAY. PT IS WALKING UP TO 250FT AND DOING STEPS. CM CALLED AND NOTIFIED PT'S DTR AND SHE INDICATED SHE HAD BEEN DISCUSSING WITH PT AND FAMILY ABOUT PT RELOCATING NEAR [place] AND GOING TO AN AL. PT'S SON WHO RESIDES WITH HER AND ASSISTS WITH SOME ADLS AND ADMINISTERING MEDS IS CURRENTLY HOSPITALIZED HAVING HAD A SEISURE. CM SPOKE WITH DTR ABOUT AL RESPITE HERE LOCALLY PT NO LONGER NEEDS TO BE IN HOSPITAL. [facility] ISN'T OFFERING AL RESPITE AT THE MOMENT DUE TO COVID BUT [facility] IS. THEY ARE GOING TO CONTACT PT'S DTR TO DISCUSS. CM TO FOLLOW UP. HOPEFULLY PT CAN GO TO [facility] RESPITE WITH SERVICES.
[2019-11-17 16:22] VITALS: BP 164/68
--- NOTE | 2019-11-17 19:21 | NUR ---
Assumed pt care at 7am.Pt in and out of bed with sba.Assisted with tray setup Fair appetite.Dr Burton here,no new order noted.dairy cattle farm worker still looking for pt placement.No verbal c/o.Fall bundle in place.Will continue to monitor.
[2019-11-17 19:56] VITALS: BP 176/59
[2019-11-18 05:59] VITALS: BP 148/70
--- NOTE | 2019-11-18 07:32 | NUR ---
ASSUMED CARE OF PT AT 1900HRS. PT AOX3-4 AND LETS NEEDS BE KNOWN. FALL PRECAUTION IN PLACE. NO COMPLAINTS OF PAIN, NAUSEA, SOA OR SYNCOPE THIS SHIFT. PT WAS ABLE TO GET COMFORTABLE AND SLEEP PART OF THE SHIFT. VSS AND NO S/S OF ACUTE DISTRESS.
[2019-11-18 07:36] VITALS: BP 152/63
[2019-11-18 12:30] LABS: CALCIUM 8.9 mg/dL (8.5-10.1); CREATININE 2.1 mg/dL (0.6-1.0); POTASSIUM 4.3 mmol/L (3.5-5.1)
--- NOTE | 2019-11-18 13:27 | NUR ---
CM CALLED AND SPOKE WITH PT'S DTR THIS AM. SHE INDICATED SHE HAD SPOKEN TO STAF PERSON FROM [facility] AND THAT THEY WERE REVIEWING THE REFERRAL TO DETERMINE IF PT IS APPROPRIATE. CM CALLED AND LEFT VM FOR AL DIRECTOR TO DETERMINE IF THEY ARE ACCEPTING AND THEN TO FOLLOW BACK UP WITH DTR. SOUNDS LIKE PLAN WILL BE TO EITHER DO AN AL RESPITE HERE LOCALLY OR FOR PT TO GO TO [facility] WITH HER DTR SON WHO RESIDES WITH PT IS CURRENTLY HOSPITALIZED. CM TO FOLLOW INDICATED.
[2019-11-18 15:08] VITALS: BP 143/50
--- NOTE | 2019-11-18 15:59 | NUR ---
CM CALLED [facility] IN ADMISSIONS AND INDICATED THAT CM HAD CALLED NUMEROUS TIMES OVER TO THE AL REGARDING POSSIBLE AL RESPITE. SHE INDICATED SHE HAD PROVIDED CM'S PHONE NUMBER AND THAT THEY HAD REVIEWED REFERRAL AND PT LOOKED LIKE SHE WOULD BE APPROPRIATE BUT THERE WERE SOME OTHER ASCPECT THAT THEY HAD TO DETERMINE. CM AWAITING RESPONSE FROM THEM.
[2019-11-18 19:25] VITALS: BP 155/68
--- NOTE | 2019-11-18 19:36 | NUR ---
Assessment completed.vss.Pt up to br with sba .Assisted with tray setup. Good appetite.Pt was very anxious about dc home today but still waiting for placement by pediatric social worker.Dr Burton here,no new order noted.Pt ambulated in hallways with therapist twice today. Good endurance noted.No verbal c/o.Pt has good day overall.Will continue to monitor.
[2019-11-19 07:30] VITALS: BP 149/69
--- NOTE | 2019-11-19 08:23 | NUR ---
PT AOX2-3. FALL PRECAUTION IN PLACE. PT DENIED PAIN, NAUSEA OR SOA. NI SYNCOPE NOTED THIS SHIFT. PT WAS ABLE TO GET COMFORTABLE AND SLEEP PART OF THE SHIFT. VSS AND NO S/S OF ACUTE DISTRESS. PT IS ON SR ON TELE.
--- NOTE | 2019-11-19 10:34 | NUR ---
Nutrition: Seen for early follow up. Pt very pleasant on interview. Despite initial pt report of not eating well at home, pt doing incredibly well w/ PO intake while hospitalized. She is eating 50-100% of most meals. Meal average= 56% x3 days. Ensure Enlive was added earlier this week after 12% wt loss found over over the last 6-7 mo. Drinking 100% of 2-3/day for an added 700-1050kcals and 40-60 g protein. Prefers strawberry flavor best. Pt states the Ensure is making her feel better as she admits to feeling weak. Was drinking 1 a day at home. Encouraged to continue 2 as long as able to support wt repletion goals. Offered coupons, but pt already reports well stocked on Ensure at home- declined need. Commended pt for great PO efforts. Change to low risk now that pt consistently eating adequate amounts and interventions in place.
--- NOTE | 2019-11-19 12:15 | NUR ---
CM FOLLOWD UP WITH PT'S DTR AND SIA IN ADMISSIONS AT [facility] THIS AM. DTR INDICATED THAT SHE IS DOING A VIRTUAL TOUR OF AN AL LOCATED IN NEAR HER THIS AFTERNOON AT 2:30 AND THAT IF THEY HAVE OPENINGS SHE MIGHT HAVE PT JUST GO THERE RATHER THAN DO AL RESPITE IN [facility]. [facility] IS ALSO AWARE AND HAD INDICATED THAT IF NEEDED THEY HAD ACCEPTED PT MEDICALLY AND COULD ACCEPT TOMORROW IF NEEDED. SHE INDICATED THEY USE [facility]. CM SENT REFERRAL TO [facility] FOR REVIEW IN THE EVENT PT WILL BE DISHCARGING LOCALLY. CM TO FOLLOW INDICATED WITH DC PLANNING.
[2019-11-19 15:24] VITALS: BP 139/58
--- NOTE | 2019-11-19 16:30 | NUR ---
CM SPOKE WITH PT'S DTR THEY HAVE FOUND AL IN [place] THAT IS ACCEPTING OF PT. [facility]. DTR AND SON IN LAW WILL ARRIVE HERE AROUND 11:00 TOMOROW AND THEY WILL TAKE PT HOME WITH THEM. CM FAXED CLINICAL TO FACILITY THIS EVENING AND COVID TEST HAD BEEN ORDERED. TEO ANA IS THE CONTACT PHONE: FAX: . CM TO FOLLOW UP WITH HER IN THE AM TO ENSURE THEY HAVE ALL NEEDED DOCUMENTATION AND ASSIST FURTHER WITH DC NEEDS.
[2019-11-19 19:27] VITALS: BP 153/65
--- NOTE | 2019-11-19 19:58 | NUR ---
Assumed pt care this am, VS stable. POC followed with no lsigns or verbalizatiosn of distress. Awaiting for placement as per case management assistant. Gait is steady, pt calls appropriately. Endorsed to the night nurse.
--- NOTE | 2019-11-20 01:25 | NUR ---
ASSUMED CARE OF PT AT 1900HRS. FALL PRECAUTION IN PLACE. PT RUNNING SR ON TELE. PT DENIES PAIN, NAUSEA OR SOA. PT LIKELY TO DC IN THE AM. PT WAS ABLE TO GET COMFORTABLE AND SLEEP PART OF THE SHIFT. PT WAS ABLE TO GET COMFORTABLE AND SLEEP PART OF THE SHIFT. NO S/F OF ACUTE DISTRESS. WILL CONTINUE TO MONITOR.
[2019-11-20 08:07] VITALS: BP 144/68
[2019-11-20] MEDS ORDERED: AMLODIPINE BESY10 MG PO (09:39)
[2019-11-20 12:11] VITALS: BP 144/68
--- NOTE | 2019-11-20 14:45 | NUR ---
PT IS TO DISCHARGE HOME WITH HER DTR MICHELLE THIS DAY. PT WILL THEN ADMIT TO [facility]AR DTR [place] [facility] SATURDAY. CM HAD SENT CLINICAL INFORMATION TO [facility] IN ADMISSIONS THERE ALONG WITH CHEST XRAY AND COVID LAB TEST RESULTS. FAMILY HAD BEEN MADE AWARE OF RECOMMENDATION FOR 24/7 SUPERVISION DUE TO PT BEING HIGH FALL RISK AND DTR IS AWARE OF PT'S NEEDS AND STILL WANTS AL PLACEMENT AT TIME OF DC. CHART COPY ODERED. ORDERS FAXED. PT'S DTR AND SON IN LAW TO TRANSPORT PT HOME THIS AFTERNOON. PT HAS ALL RECOMMENDED DME FOR USE UPON DC. NO OTHER CM INTERVENTION INDICATED. CASE CLOSED.
[2019-11-20] MEDS ORDERED: NORVASC 2.5 MG2.5 M1 PO (15:56)
--- NOTE | 2019-11-20 20:08 | NUR ---
Received awake on bed. Due medications given as prescribed, able to swallow meds w/o difficulty. On room air. Vital signs stable. A+O3-4, forgetful; re-oreiented from time to time. On telemetry- strips attached to chart; no complaints of chest pain, crushing sensation and heaviness. On regular diet- tolerating well; no nausea, no vomiting and no abdominal pain noted. Continent of bowel and bladder- able to use bedside commode with standby assist, gait belt- falls bundle in place; output measured and recorded accordingly. With SL at L FA- intact and flushing well. Possible discharge today- a/w CM recommendations. Assisted in ADLs. Pt seen and examined by Dr Burton- discharge orders made; pt to be discharged to facility on Saturday but will be going home with daughter today as per CM; Facility staff called and said they will be needing copy of chest xray result- none order; physician contacted to obtain order and covid result- swab done yesterday and a/w result today- CM to fax documents and will let me know re: discharge time for pt. CM faxed lab results to facility, pt to be fetched by faiza Chávez. Discharge instructions explained to pt and daughter; prescription electronically sent to pt's pharmacy- verified with Dr Burton. IV discontinued. Telemetry discontinued as well. Pt brought down via wheelchair with her personal belongings. Chart copy and discharge packet given to Faiza Chávez to be given to facility on Saturday.
== END 2019-11-20 15:25 | disposition home health service (06) | DRG 304 ==
LOC: ER 12:19 → 4W 16:48 → EROBS 16:48 → 4W 18:20
PROVIDERS: Physician Assistant; ADMIT Hospitalist; ATTEND Hospitalist
DX: I16.0 Hypertensive urgency (principal); E43 Unspecified severe protein-calorie malnutrition; N17.0 Acute kidney failure with tubular necrosis; N18.5 Chronic kidney disease, stage 5; I35.0 Nonrheumatic aortic (valve) stenosis; Z20.828 Contact with and (suspected) exposure to other viral communicable diseases; I73.9 Peripheral vascular disease, unspecified; E78.5 Hyperlipidemia, unspecified; I25.10 Atherosclerotic heart disease of native coronary artery without angina pectoris; M81.0 Age-related osteoporosis without current pathological fracture; E03.9 Hypothyroidism, unspecified; F03.90 Unspecified dementia, unspecified severity, without behavioral disturbance, psychotic disturbance, mood disturbance, and anxiety; G25.0 Essential tremor; G47.00 Insomnia, unspecified; I12.9 Hypertensive chronic kidney disease with stage 1 through stage 4 chronic kidney disease, or unspecified chronic kidney disease; E53.8 Deficiency of other specified B group vitamins; I71.4 Abdominal aortic aneurysm, without rupture; Z90.49 Acquired absence of other specified parts of digestive tract; Z98.49 Cataract extraction status, unspecified eye; Z95.5 Presence of coronary angioplasty implant and graft; Z90.710 Acquired absence of both cervix and uterus; Z88.1 Allergy status to other antibiotic agents; Z79.82 Long term (current) use of aspirin; Z79.899 Other long term (current) drug therapy
CPT/HCPCS: 10045; 10047